=== PATIENT | male | born 1965 | race Caucasian/White ===

== ENCOUNTER 2020-02-21 13:48 | Inpatient (IN) | payer OTHER ==
[~2020-02-21] VITALS: Ht 185.4 cm; Wt 97.2 kg
[2020-02-21 15:02] LABS: HEMATOCRIT 44.1 % (42.0-52.0); HEMOGLOBIN 14.6 g/dl (13.5-17.5); MEAN CORPUSCULAR HEMOGLOBIN 30.4 pg (27.0-33.0); MEAN CORPUSCULAR HGB CONC 33.1 g/dl (32.0-36.5); MEAN CORPUSCULAR VOLUME 91.7 fl (80.0-96.0); PLATELET COUNT, AUTOMATED 219 10^3/uL (150-450); RED BLOOD COUNT 4.81 10^6/uL (4.30-6.10); WHITE BLOOD COUNT 11.7 10^3/uL (4.0-10.0)
[2020-02-21] MEDS ORDERED: ONDANSETRON 4MG/2ML VIAL IV ONE (15:15)
[2020-02-21] MEDS: MORPHINE 4 MG/ML 1ML VIAL/SYRINGE (J2270) IV PRN ×2 (15:19→17:54)
[2020-02-21 15:26] LABS: INR 1.01; PROTHROMBIN TIME 13.5 SECONDS (12.5-14.3)
[2020-02-21 15:37] LABS: BLOOD UREA NITROGEN 20 MG/DL (7-18); CALCIUM LEVEL 8.5 MG/DL (8.5-10.1); CARBON DIOXIDE LEVEL 24 MEQ/L (21-32); CHLORIDE LEVEL 109 MEQ/L (98-107); CREATININE FOR GFR 1.13 MG/DL (0.70-1.30); GLOMERULAR FILTRATION RATE > 60.0 (>56); GLUCOSE, FASTING 94 MG/DL (70-100); POTASSIUM SERUM 3.9 MEQ/L (3.5-5.1); SODIUM LEVEL 138 MEQ/L (136-145)
--- NOTE | 2020-02-21 16:42 | REP ---
INDICATION: trauma Nontraumatic hip pain. COMPARISON: None. TECHNIQUE: Frontal view of the pelvis with neutral and cross-table lateral views of the left hip. FINDINGS: There is a nondisplaced fracture through the left femoral neck. Remainder of the pelvis and right hip appear normal. IMPRESSION: Nondisplaced fracture through the left femoral neck. <Electronically signed by John Garcia > 02/21/20 [id number]
[2020-02-21] MEDS ORDERED: THERTAB52 PO (17:17)
[2020-02-21] MEDS: NS 1,000 ML IV SCH (17:46)
--- NOTE | 2020-02-21 18:17 | HPEPDOC ---
[facility] Medical History & Physical Date of Admission Feb 21, 2020 Date of Service: Feb 21, 2020 History and Physical CHIEF COMPLAINT: Fall HISTORY OF PRESENT ILLNESS: 54-year-old male with no known past medical history, he has not seen a doctor in many years, presents for a fall. He states he was in his usual state of health this morning when he tripped while descending stairs at his house. He denies any prodromal symptoms. 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 He denies chest pain, shortness of breath, dizziness, abdominal pain, N/V/D. He states he is able to endure vigorous physical activity for over an hour without chest pain or shortness of breath. PAST MEDICAL HISTORY: Denies PSHx Appendectomy at age 6 SOCIAL HISTORY: nicotine abuse - 1ppd x 35 years ALLERGIES: Please see below. REVIEW OF SYSTEMS: Negative except as per HPI HOME MEDICATIONS: Please see below. PHYSICAL EXAMINATION: VITAL SIGNS: See below General: NAD, lying comfortably in bed HEENT: NC/AT Lungs: CTA B/L Heart: +S1S2, RRR Abd; soft, NT, +BS Ext: no edema LABORATORY DATA: See below. IMAGING: left hip fracture MICROBIOLOGY: Please see below. A/P: 54M presents for mechanical fall, found to have a left hip fracture. He has no known medical history, but has not seen a doctor in several years. 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 #falls/left hip fracture - mechanical fall - ortho c/s pending - pain control - pending card markers, no ECG changes, labs WNL - he easily attains >4 METS without ever having anginal symptoms, and therefore scores 0 points using the revised cardiac risk index. - waiting for card markers given possible risk factors for medical optimization #health screening - will check a1c and lipid panel Dispo: labs, ecg reviewed, patient is medically optimized for panned orthopedic surgical intervention Vital Signs Vital Signs Date Time Temp Pulse Resp B/P (MAP) Pulse Ox O2 Delivery O2 Flow Rate FiO2 02/21/20 17:54 18 Room Air 02/21/20 13:57 97.9 78 156/84 (108) 96 Laboratory Data Labs 24H Laboratory Tests 2 02/21/20 14:37: Nucleated Red Blood Cells % (auto) 0.0, Prothrombin Time 13.5, Prothromb Time International Ratio 1.01, Anion Gap 5L, Glomerular Filtration Rate > 60.0, Calcium Level 8.5 CBC/BMP Laboratory Tests 02/21/20 14:37 Microbiology Microbiology 02/21/20 Respiratory Virus Panel (PCR) ([facility]) - Final, Complete Home Medications Scheduled Multivitamin,Therapeutic (Thera-Tabs) 1 Each Tablet, 1 TAB PO DAILY Allergies Coded Allergies: No Known Allergies (Unverified , 02/21/20) A-FIB/CHADSVASC A-FIB History Current/History of A-Fib/PAF?: No KATE PATEL MD Feb 21, 2020 18:16
[2020-02-21 19:24] LABS: CK-MB VALUE MASS 1.4 NG/ML (<3.6); CPK CREATINE PHOSPHOKINASE 128 U/L (39-308); MB/CK RELATIVE INDEX 1.09 (< OR =4); TROPONIN I < 0.02 NG/ML (< 0.10)
--- NOTE | 2020-02-21 21:45 | ECGEPIP ---
[facility] - ED Test Date: 2020-02-21 Pat Name: SANTOS ALVARES Department: Room: - Gender: Male Rn Integrated: : 1965 Requested By: Shu Rodriguez Order Number: [id number] Reading MD: Georges Duggan Measurements Intervals [place] Rate: 73 P: 50 PA: 162 QRS: 55 QRSD: 106 T: 48 QT: 371 QTc: 411 Interpretive Statements SINUS RHYTHM NONSPECIFIC T-WAVE ABNORMALITY NO PRIORS FOR COMPARISON Electronically Signed on 02-21-2020 21:45:43 EST by Georges Duggan
[2020-02-21 23:12] VITALS: BP 122/77
[2020-02-21] MEDS: MORPHINE 2 MG/ML 1ML VIAL (J2270) IV PRN (23:16)
[2020-02-22] VITALS (8 sets, daily range): BP systolic 114–164; BP diastolic 60–97
[2020-02-22] MEDS: MORPHINE 2 MG/ML 1ML VIAL (J2270) IV PRN (03:28)
[2020-02-22] MEDS: NS 1,000 ML IV SCH (03:28)
[2020-02-22] MEDS ORDERED: MORPHINE 2 MG/ML 1ML VIAL (J2270) IV PRN (06:45)
[2020-02-22] MEDS ORDERED: MIDAZOLAM INJ 2MG/2ML VIAL (J2250 PER 1MG) As Ordered ONE (07:32)
[2020-02-22] MEDS ORDERED: LIDOCAINE 2% 100MG/5ML SDV (FOR ANES.) As Ordered ONE (07:32)
[2020-02-22] MEDS ORDERED: dexameTHASONE 4 MG/ML 1ML VIAL (J1100 PER 1MG) As Ordered ONE (07:32)
[2020-02-22] MEDS ORDERED: ONDANSETRON 4MG/2ML VIAL As Ordered ONE ×2 (07:33→10:12)
[2020-02-22] MEDS ORDERED: BUPIVACAINE/EPIN 0.25% 30 ML VIAL As Ordered ONE (07:41)
[2020-02-22 08:03] LABS: HEMATOCRIT 43.9 % (42.0-52.0); HEMOGLOBIN 14.3 g/dl (13.5-17.5); MEAN CORPUSCULAR HGB CONC 32.6 g/dl (32.0-36.5); PLATELET COUNT, AUTOMATED 217 10^3/uL (150-450); RED BLOOD COUNT 4.77 10^6/uL (4.30-6.10); WHITE BLOOD COUNT 9.7 10^3/uL (4.0-10.0)
[2020-02-22] MEDS ORDERED: fentaNYL 100 MCG/2 ML INJECTION (J3010) As Ordered ONE (08:31)
[2020-02-22 08:42] LABS: ALBUMIN 3.1 GM/DL (3.2-5.2); ALT/SGPT 28 U/L (12-78); BILIRUBIN,TOTAL 0.7 MG/DL (0.2-1.0); BLOOD UREA NITROGEN 14 MG/DL (7-18); CALCIUM LEVEL 7.8 MG/DL (8.5-10.1); CARBON DIOXIDE LEVEL 24 MEQ/L (21-32); CHLORIDE LEVEL 111 MEQ/L (98-107); CHOLESTEROL LEVEL 166 MG/DL (<200); CHOLESTEROL RISK RATIO 4.256 (<5); CREATININE FOR GFR 0.93 MG/DL (0.70-1.30); GLOMERULAR FILTRATION RATE > 60.0 (>56); GLUCOSE, FASTING 90 MG/DL (70-100); HDL CHOLESTEROL 39 MG/DL (>40); LDL CHOLESTEROL 103 MG/DL (<100); NON-HDL-C 127 MG/DL; POTASSIUM SERUM 4.3 MEQ/L (3.5-5.1); SODIUM LEVEL 139 MEQ/L (136-145); TOTAL PROTEIN 5.9 GM/DL (6.4-8.2); TRIGLYCERIDES LEVEL 119 MG/DL (<150)
[2020-02-22] MEDS ORDERED: propofoL 500 MG/50 ML VIAL As Ordered ONE (08:42)
[2020-02-22] MEDS: METAMUCIL (PSYLLIUM) PACKET PO SCH (09:00)
[2020-02-22] MEDS ORDERED: NICOTINE 14 MG/24 HR TRANSDERMAL TD SCH (09:00)
[2020-02-22] MEDS ORDERED: propofoL 200 MG/20 ML VIAL As Ordered ONE (09:29)
--- NOTE | 2020-02-22 09:53 | REP ---
INDICATION: FLUORO GUIDANCE. COMPARISON: None. TECHNIQUE: Intraoperative fluoroscopic imaging using portable C-arm technique. FINDINGS: Patient is status post satisfactory open reduction and fixation for nondisplaced femoral neck fracture with 3 compression screws through the proximal femur. Total fluoroscopic time 106.7 seconds. IMPRESSION: Satisfactory post satisfactory open reduction and fixation for nondisplaced femoral neck fracture. <Electronically signed by John Garcia > 02/22/20 0949
[2020-02-22] MEDS ORDERED: oxyCODONE 5MG TAB As Ordered ONE (10:13)
[2020-02-22 10:33] LABS: HEMOGLOBIN A1c 5.3 %
--- NOTE | 2020-02-22 10:59 | IPNPDOC ---
Text Note Date of Service The patient was seen on 02/22/20. NOTE Subjective: Patient seen and examined at bedside. No acute overnight events reported. Patient notes some pain with his lower extremity but states it is well controlled with morphine. No other medical complaints. Objective: VITAL SIGNS: See below General: NAD, lying comfortably in bed HEENT: NC/AT Lungs: CTA B/L Heart: +S1S2, RRR Abd; soft, NT, +BS Ext: no edema A/P: 54M presents for mechanical fall, found to have a left hip fracture. He has no known medical history, but has not seen a doctor in several years. 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 #falls/left hip fracture - mechanical fall - pending surgery today - pain control #DLP - will encourage lifestyle changes and outpatient follow up with primary care provider Dispo: pending surgery today VS,Fishbone, I+O VS, Fishbone, I+O Laboratory Tests 02/21/20 14:37 02/22/20 07:38 02/22/20 07:39 Vital Signs Date Time Temp Pulse Resp B/P (MAP) Pulse Ox O2 Delivery O2 Flow Rate FiO2 02/22/20 10:25 97.4 61 14 138/85 (102) 99 Room Air I&O- Last 24 Hours up to 6 AM 02/22/20 06:00 Intake Total 600 ml Output Total 700 ml Balance -100 ml KATE PATEL MD Feb 22, 2020 10:59
[2020-02-22] MEDS ORDERED: PERCOCET 5MG/325MG TAB PO PRN (11:00)
[2020-02-22] MEDS ORDERED: ACETAMINOPHEN TAB 650MG DOSE (2X325MG) PO PRN (11:00)
[2020-02-22] MEDS ORDERED: oxyCODONE 5MG TAB PO PRN (11:00)
[2020-02-22] MEDS ORDERED: MORPHINE 4 MG/ML 1ML VIAL/SYRINGE (J2270) IV PRN (11:00)
[2020-02-22] MEDS ORDERED: D5W/LR 1,000 ML IV SCH (11:00)
[2020-02-22] MEDS ORDERED: LR 1,000 ML IV SCH (11:00)
[2020-02-22] MEDS ORDERED: fentaNYL 100 MCG/2 ML INJECTION (J3010) IV PRN (11:00)
[2020-02-22] MEDS ORDERED: ONDANSETRON 4MG/2ML VIAL IV PRN ×2 (11:00→11:15)
--- NOTE | 2020-02-22 12:03 | RO ---
OPERATIVE NOTE DATE OF OPERATION: 02/22/2020 PREOPERATIVE DIAGNOSIS: Left hip fracture. POSTOPERATIVE DIAGNOSIS: Left hip fracture. PROCEDURE: Percutaneous pinning left hip femoral neck fracture. SURGEON: Adi Sanz MD ANESTHESIA: London Wells Jr., ESTIMATED BLOOD LOSS: 40 mL replaced with crystalloid. COMPLICATIONS: None. COMPONENTS USED: Include 7.3 cannulated screws Synthes; one 16 mm, one 32 mm thread length of the appropriate screw length. INDICATIONS FOR PROCEDURE: Fall on cement pad in a 54-year-old otherwise healthy gentleman with a nondisplaced femoral neck fracture obvious on x-rays. CONSENT: Reviewed in detail. Patient agrees to proceed with proposed surgery. OPERATIVE COURSE: Identified in holding area, site and side verified, and brought to the operating room. Once anesthesia was administered, he was positioned on the fracture table for exposure of the left hip. Next, I anesthetized the lateral aspect of the skin over the hip area. I made an incision approximately 2 fingerbreadths long with a 10 blade. I passed a 7.3 guidewire through the lateral aspect of the femur and adjusted the position of the guidewire based on fluoroscopic images. Advanced the guidewire into the femoral head through the femoral neck using the commercial trailer truck driver. I utilized the targeting sleeve to place the remain two guidewires more proximally superiorly and posteriorly under visualization fluoroscopically in the AP and lateral planes. Next, I measured for the appropriate screw length. For the superior screw, I placed a 16 mm thread length, overdilled with the cannulated drill, and placed the superior screw. Next, the remaining pair of screws I selected 32 mm thread lengths, measured with measuring device, selected the appropriate screw length, overdrilled with the cannulated drill, and placed the screws. Next, fluoroscopic visualization revealed that no threads crossed the fracture site and the hip appeared to be secure in a slight anatomic valgus position. Next, irrigation was accomplished. The lateral fascia was reapproximated with interrupted stitch and the deep dermis with interrupted stitch. Prineo dressing was applied. The table was reconstructed. The patient was then able to be moved to a hospital bed and moved to recovery room in good condition. For further details, please refer to the medical record.
[2020-02-22] MEDS: ceFAZolin SOD 2 GM in IV 1 EA IV SCH ×2 (14:42→21:15)
[2020-02-22] MEDS: PERCOCET 5MG/325MG TAB PO PRN ×2 (16:33→21:15)
[2020-02-22] MEDS ORDERED: NICOTINE POLACRILEX 2 MG GUM PO PRN (22:15)
[2020-02-23 02:00] VITALS: BP 144/85
[2020-02-23] MEDS: PERCOCET 5MG/325MG TAB PO PRN ×2 (03:31→08:20)
[2020-02-23 06:00] VITALS: BP 132/79
[2020-02-23] MEDS ORDERED: ceFAZolin SOD 2 GM in IV 1 EA IV ONE (06:00)
[2020-02-23] MEDS ORDERED: ECOT81TA5 PO ×2 (06:12→06:18)
[2020-02-23] MEDS ORDERED: PERC5TAB12 PO (06:12)
[2020-02-23] MEDS ORDERED: ASPIRIN 81 MG CHEW TABLET PO SCH ×3 (06:15→09:00)
[2020-02-23] MEDS: METAMUCIL (PSYLLIUM) PACKET PO SCH (08:21)
--- NOTE | 2020-02-23 11:34 | DS.PDOC ---
Discharge Summary General Date of Admission Feb 21, 2020 at 17:18 Date of Discharge 02/23/20 Discharge Summary PROCEDURES PERFORMED DURING STAY: Percutaneous pinning left hip femoral neck fracture DISCHARGE DIAGNOSES: Left hip fracture COMPLICATIONS/CHIEF COMPLAINT: Hip Fracture. HISTORY OF PRESENT ILLNESS: 54-year-old male with no known past medical history, he has not seen a doctor in many years, presents for a fall. He states he was in his usual state of health this morning when he tripped while descending stairs at his house. He denies any prodromal symptoms. 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 He denies chest pain, shortness of breath, dizziness, abdominal pain, N/V/D. He states he is able to endure vigorous physical activity for over an hour without chest pain or shortness of breath. HOSPITAL COURSE: Patient admitted for further evaluation and treated by orthopedic surgery. He underwent surgical intervention for his left hip fracture. Hospital stay was unremarkable. As per ortho, patient deemed stable for discharge with outpatient follow-up. DISCHARGE MEDICATIONS: Please see below. ALLERGIES: Please see below. PHYSICAL EXAMINATION ON DISCHARGE: VITAL SIGNS: See below General: NAD, lying comfortably in bed HEENT: NC/AT Lungs: CTA B/L Heart: +S1S2, RRR Abd; soft, NT, +BS Ext: no edema LABORATORY DATA: Please see below. ACTIVITY: [As tolerated]. DISPOSITION: 01 Home, Self-Care. DISCHARGE INSTRUCTIONS: 1. PCP in 3-5 days 2. Ortho as scheduled DISCHARGE CONDITION: [Stable]. TIME SPENT ON DISCHARGE: 35 minutes. Vital Signs/I&Os Vital Signs Date Time Temp Pulse Resp B/P (MAP) Pulse Ox O2 Delivery O2 Flow Rate FiO2 02/23/20 08:50 18 02/23/20 06:00 98.7 75 132/79 (96) 97 Room Air I&O- Last 24 Hours up to 6 AM 02/23/20 06:00 Intake Total 4603 ml Output Total 1145 ml Balance 3458 ml Microbiology Microbiology 02/21/20 Respiratory Virus Panel (PCR) ([facility]) - Final, Complete Discharge Medications Scheduled Aspirin (Ecotrin) 81 Mg Tablet.dr 81 MG PO BID for pain Multivitamin,Therapeutic (Thera-Tabs) 1 Each Tablet, 1 TAB PO DAILY, (Reported) Scheduled PRN Oxycodone HCl/Acetaminophen (Percocet 5-325 mg Tablet) 1 Each Tablet, 1-2 TAB PO Q4H PRN for PAIN Allergies Coded Allergies: No Known Allergies (Unverified , 02/21/20) KATE PATEL MD Feb 23, 2020 11:34
--- NOTE | 2020-02-23 16:15 | CR ---
ORTHOPAEDICS CONSULTATION DATE: 02/22/20 REFERRING PHYSICIAN: Shu Jauregui MD in the Hospitalist group. CHIEF COMPLAINT: Left hip pain. HISTORY OF PRESENT ILLNESS: Jose is a 54-year-old gentleman. He injured himself actually on the 19 of February when he fell down about 3 feet of steps, landed hard on a cement pad and thought he contused his hip. He limped around, had a few alcoholic beverages and thought he would rest it off; however, instead of getting better his pain got significantly worse and on the 20 of February the patient presented to an Urgent Care where they did imaging studies and those imaging studies reflected a nondisplaced fracture of the left femoral neck. The patient was then moved to [facility]. Repeat imaging studies reflected no displacement. Orthopedics was consulted. Patient indicates there was no loss of consciousness, not complaining of numbness, tingling or other problems. Does consume nicotine products, understands he should quit, does consume alcoholic beverages, but is not intoxicated. ALLERGIES: No known drug allergies. MEDICATIONS: He takes no medications at home. PAST SURGICAL HISTORY: No recent surgical history. PAST MEDICAL HISTORY: Negative. 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 FAMILY HISTORY: Noncontributory. REVIEW OF SYSTEMS: Negative in 12 areas except for musculoskeletal where the patient is complaining about severe pain left hip. PHYSICAL EXAMINATION: Alert, oriented and cooperative. Mood and affect appropriate. He is a pleasant, reasonably humored gentleman. He is comfortable when he is not moving. He is not shortness of breath. No cough or evidence of respiratory tract infection. Cardiac: Regular at about 80 [id number]. Abdomen: Nondistended, not obese. Weight is 210 pounds. Extremities: Out to length and symmetrical. Soft, nontender calves. No effusion at the knee. Pain with any movement of the right hip localized towards the proximal thigh during ranging. No focal sensory or motor deficit except as limited by pain. IMAGING: Imaging studies as above. IMPRESSION: Femoral neck fracture nondisplaced left hip. RECOMMENDATION: We spoke about surgical interventions. I would recommend percutaneous pinning for this fracture. We talked about the high risk of displacement over time without surgical intervention. We completed a pre-operative packet including a Short Form H&P and Consent document which involved the colin discussion of pathology involved, the procedure proposed, alternatives including doing nothing and risks including, but not limited to pain, failure, infection, bleeding, blood loss, need for more surgery, blood clots or some other problem. The patient wants to proceed. Coordinated with Dr. Lozada of the Hospitalist Service who is doing pre-operative work-up including cardiac because of the patient's not history of seeing physicians regularly. I coordinated with the operating room for an add-on case the following morning, Monday morning the . Patient is comfortable with our plan.
== END 2020-02-23 10:05 | disposition home or self-care (01) | DRG 308 ==
LOC: M ED 13:48 → M ED INP 17:18 → M MS5PR 23:05
PROVIDERS: ADMIT Internal Medicine; ATTEND Internal Medicine
PROC: 0QS704Z Reposition Left Upper Femur with Internal Fixation Device, Open Approach (ICD-10-PCS; principal; 2020-02-22 08:30)
DX: S72.092A Other fracture of head and neck of left femur, initial encounter for closed fracture (principal); W18.30XA Fall on same level, unspecified, initial encounter; Y92.009 Unspecified place in unspecified non-institutional (private) residence as the place of occurrence of the external cause; F17.200 Nicotine dependence, unspecified, uncomplicated

== ENCOUNTER → 2023-11-29 | Outpatient (CLI) | payer OTHER ==
[~2023-11-29] MED LIST: ECOT81TA5 PO; PERC5TAB12 PO; THERTAB52 PO
[2023-11-29 11:43] LABS: BASO # 0.1 10^3/uL (0.0-0.2); BASO % 0.8 % (0.0-1.0); EOS # 0.1 10^3/uL (0.0-0.5); EOS % 1.7 % (0.0-3.0); HEMATOCRIT 46.3 % (42.0-52.0); HEMOGLOBIN 15.5 g/dl (13.5-17.5); LYMPH # 2.8 10^3/uL (1.5-5.0); LYMPH % 36.2 % (24.0-44.0); MEAN CORPUSCULAR HEMOGLOBIN 30.8 pg (27.0-33.0); MEAN CORPUSCULAR HGB CONC 33.5 g/dl (32.0-36.5); MONO # 0.8 10^3/uL (0.0-0.8); MONO % 10.9 % (2.0-8.0); NEUTROPHILS # 3.8 10^3/uL (1.5-8.5); NEUTROPHILS % 50.1 % (36.0-66.0); PLATELET COUNT, AUTOMATED 288 10^3/uL (150-450); RED BLOOD COUNT 5.03 10^6/uL (4.30-6.10); WHITE BLOOD COUNT 7.6 10^3/uL (4.0-10.0)
[2023-11-29 12:05] LABS: ALBUMIN 3.7 G/DL (3.2-5.2); ALKALINE PHOSPHATASE 69 U/L (46-116); ALT/SGPT 20 U/L (7.0-40); AST/SGOT 11 U/L (<34); BILIRUBIN,TOTAL 0.5 MG/DL (0.3-1.2); BLOOD UREA NITROGEN 19 MG/DL (9-23); CALCIUM LEVEL 9.6 MG/DL (8.5-10.1); CARBON DIOXIDE LEVEL 27 MMOL/L (20-31); CHLORIDE LEVEL 110 MMOL/L (98-107); CHOLESTEROL LEVEL 152 MG/DL (<200); CHOLESTEROL RISK RATIO 4.22 (<5); GLOMERULAR FILTRATION RATE > 60.0 (>56); GLUCOSE, FASTING 109 MG/DL (60-100); LDL CHOLESTEROL 92.6 MG/DL (<100); SODIUM LEVEL 140 MMOL/L (136-145); TOTAL PROTEIN 6.9 G/DL (5.7-8.2); TRIGLYCERIDES LEVEL 117 MG/DL (<150)
[2023-11-29 12:07] LABS: PSA SCREENING 0.39 NG/ML (< 4.00)
[2023-11-29 12:10] LABS: THYROID STIMULATING HORMONE 1.261 uIU/ML (0.55-4.78)
[2023-11-29 12:11] LABS: FREE T4 1.62 NG/DL (0.89-1.76)
[2023-11-29 12:38] LABS: HEMOGLOBIN A1c 5.3 % (4.0-6.0)
[2023-11-29 12:41] LABS: HIV 1&2 SCREEN NEGATIVE (NEGATIVE)
[2023-11-29 12:49] LABS: HEPATITIS C VIRUS ABY INDEX 0.03 INDEX (<0.8)
== END ==
LOC: M PLALAB 07:18
PROVIDERS: ATTEND Student in an Organized Health Care Education/Training Program
DX: Z76.89 Persons encountering health services in other specified circumstances (principal); Z80.42 Family history of malignant neoplasm of prostate; Z80.0 Family history of malignant neoplasm of digestive organs; Z12.11 Encounter for screening for malignant neoplasm of colon; H43.391 Other vitreous opacities, right eye; Z13.1 Encounter for screening for diabetes mellitus; Z13.220 Encounter for screening for lipoid disorders
CPT/HCPCS: 36415; 80053; 80061; 82652; 83036; 84439; 84443; 85025; 86803; 87389; G0103

== ENCOUNTER 2024-03-08 06:43 | Day surgery (SDC) | payer OTHER ==
[~2024-03-08] VITALS: Ht 185.4 cm; Wt 93.5 kg
[2024-03-08 09:09] VITALS: TEMP 98.5
[2024-03-08 09:28] VITALS: BP 127/64; O2SAT 97
== END 2024-03-08 09:34 | disposition home or self-care (01) ==
LOC: M OPP 06:43
PROVIDERS: ATTEND Surgery
DX: Z12.11 Encounter for screening for malignant neoplasm of colon (principal); D12.3 Benign neoplasm of transverse colon; D12.4 Benign neoplasm of descending colon; D12.5 Benign neoplasm of sigmoid colon; D12.8 Benign neoplasm of rectum; F17.210 Nicotine dependence, cigarettes, uncomplicated